=== PATIENT | female | born 1995 | race Caucasian/White ===

== ENCOUNTER 2020-09-03 06:01 | Inpatient (IN) ==
[2020-09-03] MEDS ORDERED: MEPERIDINE 50 MG/1 ML VIAL IV PRN (06:10)
[2020-09-03] MEDS ORDERED: BUTORPHANOL 2 MG/ML VIAL IV PRN (06:10)
[2020-09-03] MEDS ORDERED: ONDANSETRON 4 MG/2 ML VIAL IV PRN (06:10)
[2020-09-03 06:43] LABS: Basophils % 0.4 % (0.0-0.8); Eosinophils % 0.3 % (0.00-10.9); Hematocrit 35.5 VOL% (35.7-47.0); Hemoglobin 11.6 GM/DL (12.0-16.0); Immature Granulocytes % 0.9 %; Immature Granulocytes Absolute 0.07 #; Lymphocytes # 1.6 10*3/uL (1.4-4.0); Lymphocytes % 19.9 % (21.3-54.2); Mean Corpuscular HGB Conc 32.7 GM/DL (32-36); Mean Corpuscular Volume 89.4 FL (87-102); Mean Platelet Volume 12.9 FL (9.6-12.0); Neutrophils % 73.5 % (38.7-73.9); Platelet Count 161 T/CUMM (130-400); Red Blood Count 3.97 MC/CUMM (3.8-5.5); Red Cell Distribution Width 13.7 % (9.3-17.3); White Blood Count 7.9 T/CUMM (4-12)
[2020-09-03] MEDS ORDERED: OXYTOCIN/D5LR 20 UNIT/1,000 ML PREMIX IV SCH (07:00)
[2020-09-03] MEDS: LACTATED RINGERS 1,000 ML IV SCH ×3 (07:00→10:26)
[2020-09-03 07:09] LABS: Albumin 3.1 G/DL (3.4-5.0); Bilirubin,Total 0.4 MG/DL (0.2-1.0); Calcium 9.4 MG/DL (8.5-10.1); Osmolality,Calculated 266.2 MOS/KG (273-304); Potassium 3.7 MMOL/L (3.5-5.1); Total Protein 7.3 G/DL (6.4-8.2)
[2020-09-03] MEDS: OXYTOCIN/LR 20 UNIT/1,000 ML BAG IV SCH ×2 (07:15→15:48)
[2020-09-03] MEDS ORDERED: diphenhydrAMINE 50 MG/1 ML VIAL IV PRN ×2 (07:17)
[2020-09-03] MEDS ORDERED: NALOXONE 0.4 MG/ML VIAL IV PRN (07:17)
[2020-09-03] MEDS ORDERED: FAMOTIDINE 20 MG/2 ML VIAL IV ONE (07:17)
[2020-09-03] MEDS ORDERED: ePHEDrine 50 MG/ML VIAL IV PRN (07:17)
[2020-09-03] MEDS ORDERED: CITRIC ACID/SODIUM CITRATE 30 ML UDCUP PO ONE (07:17)
[2020-09-03] MEDS ORDERED: hydrOXYzine HCL 25 MG/1 ML VIAL IM PRN (07:17)
[2020-09-03] MEDS ORDERED: LACTATED RINGERS 1,000 ML IV ONE (07:17)
[2020-09-03] MEDS ORDERED: fentaNYL 2 MCG/ROPIV 0.2% EPID 100 ML EPIDURAL SCH (07:30)
[2020-09-03 10:32] LABS: Bacteria,Urine Occasional /HPF (Few); Bilirubin,Urine Negative (Negative); Blood, Urine Negative (Negative); Glucose,Urine (UA) Negative (Negative); Ketones,Urine Negative (Negative); Nitrite,Urine Negative (Negative); Protein,Urine Negative; Urine Appearance CLEAR (Clear); Urine Color Straw (Yellow); Urine Specific Gravity 1.004 (1.001-1.035); Urine Urobilinogen < 2.0 EU/DL (0.2-1.0); WBC,Urine <1 /HPF (0-6)
[2020-09-03] MEDS ORDERED: METHYLERGONOVINE 0.2 MG/1 ML AMP ONE (12:31)
[2020-09-03] MEDS ORDERED: miSOPROStoL 200 MCG TABLET ONE (12:31)
[2020-09-03] MEDS ORDERED: OXYTOCIN/LR 0 UNIT/0 ML BAG IV ONE (12:31)
[2020-09-03] MEDS ORDERED: TRANEXAMIC ACID 1,000 MG/10 ML VIAL ONE (12:31)
[2020-09-03] MEDS ORDERED: CARBOPROST TROMETHAMINE 250 MCG/ML AMP IM ONE (12:32)
[2020-09-03 13:04] LABS: Cord Venous Blood HCO3 22.3 MMOL/L; Cord Venous Blood PCO2 37.9 MMHG; Cord Venous Blood PO2 32.3 MMHG
[2020-09-03 13:05] LABS: Cord Arterial Blood HCO3 17.4 MMOL/L
[2020-09-03] MEDS ORDERED: MEASLES/MUMPS/RUBELLA VACCINE 0.5 ML VIAL SUBCUT ONE (13:06)
[2020-09-03] MEDS ORDERED: LANOLIN 50% CREAM 0.3 OZ TUBE TOP PRN (13:06)
[2020-09-03] MEDS ORDERED: DIPH/TET/ACEL PERT BOOSTER VACCINE 0.5 ML VIAL IM ONE (13:06)
[2020-09-03] MEDS ORDERED: BISACODYL 10 MG SUPP RECTAL PRN (13:06)
[2020-09-03] MEDS ORDERED: BENZOCAINE 20%/MENTHOL 0.5% SPRAY 56 GM CAN TOP PRN (13:06)
[2020-09-03] MEDS ORDERED: ACETAMINOPHEN 325 MG TABLET PO PRN (13:06)
[2020-09-03] MEDS ORDERED: WITCH HAZEL PADS 100/JAR TOP PRN (13:06)
[2020-09-03] MEDS: IBUPROFEN 800 MG TABLET PO PRN (20:37)
[2020-09-03] MEDS: DOCUSATE SODIUM 100 MG CAPSULE PO SCH (20:37)
[2020-09-04 05:14] LABS: Basophils % 0.1 % (0.0-0.8); Eosinophils % 0.3 % (0.00-10.9); Hematocrit 29.9 VOL% (35.7-47.0); Hemoglobin 9.2 GM/DL (12.0-16.0); Immature Granulocytes % 0.7 %; Immature Granulocytes Absolute 0.06 #; Lymphocytes # 1.5 10*3/uL (1.4-4.0); Lymphocytes % 17.3 % (21.3-54.2); Mean Corpuscular HGB Conc 30.8 GM/DL (32-36); Mean Corpuscular Volume 91.4 FL (87-102); Mean Platelet Volume 12.9 FL (9.6-12.0); Monocytes % 4.7 % (1.7-12.7); Neutrophils % 76.9 % (38.7-73.9); Platelet Count 126 T/CUMM (130-400); Red Blood Count 3.27 MC/CUMM (3.8-5.5); Red Cell Distribution Width 13.7 % (9.3-17.3); White Blood Count 8.7 T/CUMM (4-12)
[2020-09-04] MEDS: IBUPROFEN 800 MG TABLET PO PRN ×3 (05:20→20:32)
[2020-09-04] MEDS: MULTIVITAMIN (PRENATAL) TABLET PO SCH (09:22)
[2020-09-04] MEDS: FERROUS SULFATE 325 MG TABLET PO SCH (09:22)
[2020-09-04] MEDS: DOCUSATE SODIUM 100 MG CAPSULE PO SCH ×3 (09:22→21:44)
[2020-09-04] MEDS: HYDROCORTISONE 2.5% RECTAL CREAM 30 GM TUBE TOP SCH ×5 (13:05→21:34)
[2020-09-05] MEDS: IBUPROFEN 800 MG TABLET PO PRN (06:02)
[2020-09-05 07:14] VITALS: BP 125/66
[2020-09-05] MEDS: FERROUS SULFATE 325 MG TABLET PO SCH (10:12)
[2020-09-05] MEDS: DOCUSATE SODIUM 100 MG CAPSULE PO SCH (10:12)
[2020-09-05] MEDS: MULTIVITAMIN (PRENATAL) TABLET PO SCH (10:12)
== END 2020-09-05 12:50 | disposition home or self-care (01) | DRG 807 ==
LOC: N.LD 06:01 → N.OB 15:53
PROVIDERS: ADMIT Obstetrics & Gynecology; ATTEND Obstetrics & Gynecology